=== PATIENT | male | born 1950 | race African-American/Black ===

== ENCOUNTER 2023-05-27 13:03 | Outpatient (RCR) | payer MEDICARE, OTHER ==
[~2023-05-27 13:03] MED LIST: ASPIRIN E.C. 8181 MG PO; BRILINTA90 MG PO; CRESTOR20 MG PO; GLUCOPHAGE XR500 M1 PO; MICARDIS80 MG PO; NITROSTAT0.4 MG/TAB SL; TOPROL XL 25MG25 MG PO
== END 2023-05-28 | disposition home or self-care (01) ==
LOC: COL.CR
DX: Z48.812 Encounter for surgical aftercare following surgery on the circulatory system (principal); Z95.5 Presence of coronary angioplasty implant and graft

== ENCOUNTER 2023-06-24 11:33 | Outpatient (RCR) | payer MEDICARE, OTHER | END 2023-06-24 16:29 | disposition home or self-care (01) | LOC: COL.CR 11:33 | DX: Z48.812 Encounter for surgical aftercare following surgery on the circulatory system (principal); Z95.5 Presence of coronary angioplasty implant and graft ==